=== PATIENT | female | born 1965 | race Caucasian/White ===

== ENCOUNTER 2024-07-18 14:09 | Outpatient (CLI) | payer OTHER | END 2024-07-18 14:10 | disposition home or self-care (01) | LOC: NAV RAD 14:09 | PROVIDERS: ATTEND Family Medicine | DX: M48.061 Spinal stenosis, lumbar region without neurogenic claudication (principal); M47.816 Spondylosis without myelopathy or radiculopathy, lumbar region | CPT/HCPCS: 72100 ==